=== PATIENT | female | born 1940 | race Caucasian/White ===

== ENCOUNTER 2016-09-10 10:34 | Inpatient (IN) ==
[2016-09-10] MEDS ORDERED: ASPIRIN PO STA (11:01)
[2016-09-10] MEDS ORDERED: ZOFRAN IV PRN (11:04)
--- NOTE | 2016-09-10 11:39 | Diag Imaging Result Doc PS360 ---
EXAM: FLAT/UPRIGHT ABD/1 VIEW CHEST - 09/10/2016 HISTORY: cp abd pain TECHNIQUE: Supine and upright abdomen one view chest COMPARISON: Chest two views of 11/19/2015 FINDINGS: There is a moderate amount retained fecal debris in the colon and rectum suggesting constipation. The bowel gas pattern is otherwise nonspecific. There is no abnormal gaseous small bowel distention identified. There is no free air identified. There are surgical clips at the right upper quadrant. Upright chest shows stable upper normal heart size. There is stable mild tortuosity of the thoracic aorta. There is stable biapical pleural thickening. There are no acute changes identified. There is old deformity of the distal right clavicle noted. IMPRESSION: Evidence of constipation. Nonspecific bowel gas pattern otherwise. No evidence of acute cardiopulmonary disease. Chronic deformity of the distal right clavicle noted. Electronically signed by Keven Ramirez 09/10/2016 11:37 AM
[2016-09-10 11:43] LABS: INR 1.02; PROTIME 10.7 Seconds (9.2-11.7)
[2016-09-10 12:13] LABS: AGAP 12; ALBUMIN 3.2 g/dL (3.5-5.0); ALKALINE PHOSPHATASE 144 U/L (32-104); BUN 10 mg/dL (8-22); CALCIUM 9.3 mg/dL (8.8-10.2); CHLORIDE 94 mmol/L (98-107); COSMO 260; GOT 208 U/L (10-30); GPT 101 U/L (10-36); POTASSIUM 3.7 mmol/L (3.5-5.1); SODIUM 130 mmol/L (136-145); TCO2 24 mmol/L (25-35); TOTAL PROTEIN 6.7 g/dL (6.3-8.3)
--- NOTE | 2016-09-10 12:14 | EKG Report ---
Test Performed on : 09/10/2016 10:55:00 AM Test Reason : chest pain Blood Pressure : / mmHG Vent. Rate : 073 BPM Atrial Rate : 073 BPM P-R Int : 154 ms QRS Dur : 078 ms QT Int : 382 ms P-R-T Axes : 048 038 222 degrees QTc Int : 420 ms Normal sinus rhythm. with sinus arrhythmia. ST \T\ T wave abnormality, consider inferior ischemia ST \T\ T wave abnormality, consider anterolateral ischemia Abnormal ECG When compared with ECG of 06-NOV-2009 15:00, No significant change was found Unconfirmed Result
--- NOTE | 2016-09-10 14:39 | HISTORY AND PHYSICAL ---
CHIEF COMPLAINT: Right neck pain, right shoulder pain, and pronounced abdominal pain and nausea. HISTORY OF PRESENT ILLNESS: The patient is a 76-year-old, white female, followed in my medical practice, who presents to the office complaining of shoulder pain. She says initially it began in the left shoulder area and radiated across to the right shoulder where it seemed to localize some right neck discomfort as well. 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 She says she was seen in the ER 2 days ago and was evaluated and thought to have trapezius muscle strain, and was started on Robaxin 500 mg p.o. b.i.d., and Tylenol #3. She took 1 dose Tylenol #3 after eating 2 pieces of toast this morning and began having severe pain in her epigastrium with prominent nausea and nearly "throwing up". The patient does have a history of peptic ulcer disease, but denies melena or hematochezia. She does admit to some constipation. MEDICATIONS PRIOR TO ADMISSION: 1. Cymbalta 60 mg p.o. daily. 2. Zestril 5 mg p.o. daily. 3. Toprol-XL 50 mg p.o. daily. 4. Xanax 0.25 mg p.o. t.i.d. p.r.n. anxiety. 5. Neurontin 300 mg p.o. b.i.d. 6. Ambien 10 mg p.o. at bedtime. 7. The patient has reinstituted some cholesterol medication in the form of Crestor at 5 mg at bedtime on the first of July. ALLERGIES: To penicillin and Keflex. PAST MEDICAL HISTORY: 1. Hypercholesterolemia. 2. Longstanding depression. 3. Osteoarthritis, severe, especially in her hands. 4. Fibromyalgia. 5. Hypertension. 6. Severe diverticulosis diagnosed April 2013. 7. Moderate TR. 8. Mild MR. PAST SURGICAL HISTORY: 1. Hysterectomy with USO 1968. 2. Lumbar back surgery 2004. 3. Cholecystectomy August 2007. 4. Appendectomy 1958. 5. Bilateral cataract removal. IMMUNIZATIONS: Pneumovax 23 given in 2007, Prevnar 13 given 04/15/2015. Last influenza vaccination given April 2016. Zostavax given 02/20/2013. FAMILY HISTORY: Notable for peptic ulcer disease in her father. Skin cancer in her mother and father. Father of pneumonia. MA in 3 uncles. Grandmother and mother with Alzheimer dementia. Uncle with prostate cancer. Son with severe alcoholism. SOCIAL HISTORY: The patient lives in [place]. She is longstanding. She smokes half pack of cigarettes per day and has for about 45 years. She does not drink alcohol. 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 REVIEW OF SYSTEMS: Notable for tremendous amount of stress on her as her son, whom she has cared for longstanding, has had a relapse of his alcoholism and had to be placed back [facility] [place]. She does admit to constipation. Denies dysuria. No recent cough. No fever. Prominent nausea only this morning. Abdominal pain only this morning. PHYSICAL EXAMINATION: VITAL SIGNS: Weight 133 which is down slightly. Blood pressure 122/60, pulse 102, temperature 98.4 degrees. GENERAL: In general, a thin, elderly, white female, who looks very ill. We gave her an emesis basin. She is very nauseated. SKIN: No rashes. HEENT: NC/AT. KYRIE. EOMI. Sclerae anicteric. OP no redness. Tongue in the midline. NECK: No LA, TMG, JVD, bruits. CV: RRR. Cannot rule out faint 1/6 murmur. LUNGS: CTA. BACK: No CVA tenderness. ABDOMEN: Soft, active bowel sounds. Moderate tenderness in the epigastrium. No mass or organomegaly. No rebound or guarding. BREASTS, PELVIC, RECTAL: Deferred. EXTREMITIES: No calf tenderness, cords or edema. Prominent OA changes noted with Heberden's nodes diffusely. NEUROLOGIC: Cranial nerves 2 through 12 intact. NF. Transferred over to the ER and obtain labs. LABS AND X-RAYS: So far, those have shown a PT 10.7, INR 1.02, PTT 31. Sodium 130, potassium 3.7, chloride 94, CO2 24, BUN 10, creatinine 0.7, glucose 93, calcium 9.3, total bilirubin 0.6. AST 208, ALT 101, alkaline phosphatase 144. These are markedly elevated compared what they were in April 2016 when they were normal. Total CK 85, troponin less than 0.01. Total protein 6.7, albumin 3.2. Flat and upright of the abdomen with one view of the chest shows constipation, otherwise negative. EKG shows normal sinus rhythm with sinus arrhythmia, prominent ST changes inferiorly and anterolaterally, which are unchanged from EKG in November 2009. ASSESSMENT: 1. Vague pain in her chest, upper shoulders especially on the right, right neck pain. Rule out anginal equivalent, but doubtful. 2. Elevated liver function tests with history of prior cholecystectomy. 3. Hypertension with borderline low blood pressures currently. 4. Hypercholesterolemia. 5. Osteoarthritis. 6. Depression. 7. Fibromyalgia. 8. Severe diverticulosis. 9. Moderate tricuspid regurgitation. 10. Mild mitral regurgitation. 11. Abdominal pain with history of peptic ulcer disease. PLAN: We will go ahead and admit the patient. Check abdominal ultrasound. Check liver lab workup. Check amylase, lipase, CBC, continue Zofran as needed. Hold her blood pressure medicines in the form of Toprol-XL and Zestril. We will also continue her Protonix and will hold the Crestor. Await abdominal ultrasound results. cc: Ralf Wall MD
--- NOTE | 2016-09-10 16:05 | Diag Imaging Result Doc PS360 ---
US ABDOMEN-COMPLETE - 09/10/2016 INDICATION: elevated lfts COMPARISON: 04/16/2014 FINDINGS: The gallbladder is surgically absent. The liver, pancreas, spleen, and both kidneys are normal. Common bile duct measures 1.2 cm. Aorta, IVC, and main portal vein are patent. Sonographic Crawford sign is negative. IMPRESSION: No acute disease. Benign dilation of the common bile duct, which is commonly found in patient's with hepatic cholecystectomy. Electronically signed by Lester Poe 09/10/2016 4:03 PM
[2016-09-10 16:55] LABS: MANUAL DIFF NEEDED? NO
[2016-09-10 17:02] LABS: BASO% 0.3 % (0.0-0.8); EOS# 0.01 X1000 (0.0-0.7); EOS% 0.2 % (0.0-10.0); HEMATOCRIT 34.5 % (37.0-47.0); HEMOGLOBIN 11.4 g/dL (12.0-16.0); LYMPH% 27.9 % (20.5-51.1); MCH 31.4 PG (27-31); MONO% 12.2 % (1.7-9.3); NEUT% 59.4 % (42.2-75.2); PLT 241 X1000 (130-400); RBC 3.63 XMIL (4.2-5.4)
[2016-09-10 17:14] LABS: AMYLASE 51 U/L (20-200); LIPASE 28 U/L (13-60)
[2016-09-10] MEDS: AMBIEN PO SCH ×2 (20:37→22:33)
[2016-09-10] MEDS: NEURONTIN PO SCH (20:37)
[2016-09-11] MEDS: XANAX PO PRN ×3 (03:12→20:25)
[2016-09-11 06:11] LABS: MANUAL DIFF NEEDED? NO
[2016-09-11 06:19] LABS: BASO% 0.4 % (0.0-0.8); EOS# 0.05 X1000 (0.0-0.7); HEMATOCRIT 33.2 % (37.0-47.0); HEMOGLOBIN 11.1 g/dL (12.0-16.0); IMM GRAN# 0.02 X1000 (0.0-0.04); IMM GRAN% 0.4 % (0.0-0.5); LYMPH# 1.42 X1000 (1.2-3.4); LYMPH% 27.7 % (20.5-51.1); MCH 31.9 PG (27-31); MCHC 33.4 g/dL (33-37); MCV 95.4 FL (81-99); MONO# 0.68 X1000 (0.11-0.59); MONO% 13.3 % (1.7-9.3); MPV 10.2 FL (7.4-10.4); NEUT% 57.2 % (42.2-75.2); PLT 252 X1000 (130-400); RBC 3.48 XMIL (4.2-5.4)
[2016-09-11 06:47] LABS: AGAP 11; ALBUMIN 3.2 g/dL (3.5-5.0); ALKALINE PHOSPHATASE 188 U/L (32-104); AMYLASE 47 U/L (20-200); BUN 9 mg/dL (8-22); CALCIUM 9.2 mg/dL (8.8-10.2); CHLORIDE 99 mmol/L (98-107); COSMO 272; GOT 286 U/L (10-30); GPT 234 U/L (10-36); LIPASE 20 U/L (13-60); POTASSIUM 3.9 mmol/L (3.5-5.1); SODIUM 137 mmol/L (136-145); TCO2 27 mmol/L (25-35); TOTAL BILIRUBIN 0.46 mg/dL (0.20-1.00); TOTAL PROTEIN 6.4 g/dL (6.3-8.3)
[2016-09-11] MEDS: NEURONTIN PO SCH ×2 (08:38→20:25)
[2016-09-11] MEDS: PROTONIX PO SCH (08:38)
[2016-09-11] MEDS: CYMBALTA PO SCH (08:38)
[2016-09-11] MEDS ORDERED: DULCOLAX PR ONE (08:49)
[2016-09-11] MEDS ORDERED: MILK OF MAGNESIA PO ONE (08:49)
[2016-09-11] MEDS: ULTRAM PO PRN ×2 (10:02→18:03)
[2016-09-11 10:20] LABS: ALLEN TEST YES; BE 2.3 mmoll (-3.0-3.0); BLOOD TYPE ARTERIAL; DRAW SITE R RADIAL; METHB 0.8 % (0.0-1.5); PCO2(98.6) 43 mmHg (35-45); PO2(98.6) 62 mmHg (60-100); SAMPLE BLOOD; SAO2 96.9 % (95.0-100.0); THB 10.7 g/dL (11.5-17.4); pH(98.6) 7.41 (7.35-7.45)
[2016-09-11 10:22] LABS: MODALITY ROOM AIR
--- NOTE | 2016-09-11 13:33 | PROGRESS NOTE ---
DATE: 09/11/2016 SUBJECTIVE: Patient alert. She has no specific complaints. Still has some discomfort in the neck area on the right with movement of her neck but that is improving, she thinks. OBJECTIVE: CV: RRR. Lungs: CTA. Abdomen soft. No pinpoint tenderness. No mass or organomegaly. Extremities: No calf tenderness, cords or edema. Neurologic: Nonfocal. LABORATORY DATA: Labs today reveal mild escalation in already elevated LFTs. Amylase, lipase normal. Creatinine normal. Abdominal ultrasound yesterday revealed normal liver and organs except for mildly dilated common bile duct at 1.2 which was thought to be a normal thing considering her previous history of cholecystectomy. Cardiac enzymes: Troponin level negative x3. Flat and upright of the abdomen reveals some constipation. Chest x-ray portion and, otherwise, x-rays are nonspecific. ASSESSMENT: 1. Elevated LFTs. 2. Right neck/shoulder pain with no evidence of anginal equivalent. 3. Hypercholesterolemia. 4. History of hypertension with blood pressure running low but stable off Zestril and Toprol. 5. Depression with anxiety, long-standing. 6. Severe osteoarthritis. PLAN: Ferritin level was elevated in the 500s. Hepatitis profile is pending. I am going to ask Dr. Ragland to see the patient in consultation. We have left her off of her Crestor and left her off her antihypertensives. Continue PPI in the form of Protonix. cc: Ralf Wall MD
--- NOTE | 2016-09-11 14:21 | Diag Imaging Result Doc PS360 ---
EXAM: ANGIOGRAM/PULMONARY ARTERIES HISTORY: hypoxia:elevated d-dimer TECHNIQUE: COMPARISON: None. FINDINGS: Normal opacification of the pulmonary arteries and their major branches. No thoracic aortic aneurysm or dissection. The heart is mildly enlarged. No pleural effusions. No enlarged mediastinal or hilar lymph nodes. There is apical pleural thickening and scarring. A 7 mm nodule is found laterally in the right lower lobe on image 96. No consolidation. No bronchiectasis. Minimal basilar atelectasis or fibrosis. IMPRESSION: 1.No pulmonary emboli 2.Small nonspecific right lower lobe pulmonary nodule 3.Apical pleural thickening and scarring Electronically signed by Cam Llanos 09/11/2016 2:18 PM
--- NOTE | 2016-09-11 14:23 | Diag Imaging Result Doc PS360 ---
EXAM: CT ABD/PELVIS W/ IV CONT ONLY HISTORY: elevated lfts TECHNIQUE: COMPARISON: None. FINDINGS: There is fatty infiltration of the liver. The gallbladder has been removed. Normal spleen, pancreas, adrenal glands, and kidneys. No hydronephrosis. No aortic aneurysm. Moderate atherosclerosis. There is stool throughout the colon. No bowel obstruction. There are scattered diverticula. No inflammation about the cecum. No abscess. No free air. The urinary bladder is distended and appears normal. The uterus is been removed. No pelvic mass. IMPRESSION: 1.Fatty infiltration of the liver 2.Cholecystectomy 3.Constipation 4.Diverticulosis 5.Hysterectomy Electronically signed by Cam Llanos 09/11/2016 2:21 PM
[2016-09-11] MEDS: AMBIEN PO SCH (20:25)
[2016-09-12 05:25] LABS: HEMATOCRIT 32.9 % (37.0-47.0); HEMOGLOBIN 10.9 g/dL (12.0-16.0); MCH 32.2 PG (27-31); MCHC 33.1 g/dL (33-37); MCV 97.1 FL (81-99); MPV 9.8 FL (7.4-10.4); RBC 3.39 XMIL (4.2-5.4)
[2016-09-12 05:33] LABS: AGAP 12; ALBUMIN 3.1 g/dL (3.5-5.0); ALKALINE PHOSPHATASE 166 U/L (32-104); BUN 8 mg/dL (8-22); CALCIUM 9.1 mg/dL (8.8-10.2); CHLORIDE 97 mmol/L (98-107); COSMO 274; GOT 102 U/L (10-30); GPT 150 U/L (10-36); POTASSIUM 4.1 mmol/L (3.5-5.1); SODIUM 138 mmol/L (136-145); TCO2 29 mmol/L (25-35); TOTAL BILIRUBIN 0.34 mg/dL (0.20-1.00); TOTAL PROTEIN 6.2 g/dL (6.3-8.3)
[2016-09-12 08:43] LABS: HEPATITIS PROFILE ACUTE SEE COMMENTS
[2016-09-12] MEDS: ULTRAM PO PRN ×2 (08:47→15:44)
[2016-09-12] MEDS: PROTONIX PO SCH (08:48)
[2016-09-12] MEDS: DULCOLAX PR SCH (08:48)
[2016-09-12] MEDS: MIRALAX PO SCH (08:48)
[2016-09-12] MEDS: CYMBALTA PO SCH (08:48)
[2016-09-12] MEDS: NEURONTIN PO SCH ×2 (08:48→21:47)
[2016-09-12] MEDS ORDERED: NS 500 ML IV ONE (11:37)
--- NOTE | 2016-09-12 13:23 | PROGRESS NOTE ---
DATE: 09/12/2016 SUBJECTIVE: Patient lying in bed, sleeping. She is easily arousable. She denies specific complaints. Says she feels a little bit better. OBJECTIVE: Vital signs: Afebrile, pulse 66, blood pressure this morning 90/67, respiratory rate 18, O2 saturation room air 94-97%. Blood pressure as low as 77/43 documented 8 p.m. last evening. Cardiovascular: RRR. Lungs: CTA. Active bowel sounds. No point tenderness. No bowel movement. Extremities: No calf tenderness, cords or edema. Neurologic: Cranial nerves are intact without focal deficits. LAB: Showed negative hepatitis profile. Liver function tests remain elevated, but are declining. White count 4.8, hemoglobin 10.9, platelets 263,000. Electrolytes normal. BUN 8, creatinine 0.6. CT pulmonary angiogram showed no pulmonary emboli. Small nonspecific 7 mm nodule right lower lobe, apical pleural thickening and scarring. CT abdomen and pelvis reveals fatty liver, cholecystectomy prior, constipation, diverticulosis, prior hysterectomy. ASSESSMENT: 1. Elevated liver function tests thought at this point possibly related to the Crestor, improving. 2. Hypotension, still fairly prominent despite leaving her off of her Toprol and Zestril since admission. 3. Right neck and shoulder pain improved, thought musculoskeletal in nature. 4. Hypercholesterolemia currently off of her Crestor due to elevated liver function tests. 5. History of hypertension. 6. Depression with anxiety and stress reaction associated with recent difficulty with her son. 7. Severe osteoarthritis. PLAN: At this time will give her a bolus of normal saline. Will ambulate the patient. Continue to leave her off her Crestor and antihypertensives. Discontinue PPI. See how she does with ambulation and see how her blood pressure holds up. If she does well, she will possibly be able to be discharged tomorrow morning. Will repeat labs in the morning. cc: Ralf Wall MD
[2016-09-12] MEDS: XANAX PO PRN (15:44)
[2016-09-12] MEDS: AMBIEN PO SCH (21:47)
[2016-09-13 05:56] LABS: HEMOGLOBIN 10.9 g/dL (12.0-16.0); MCH 32.2 PG (27-31); MCV 97.3 FL (81-99); MPV 9.8 FL (7.4-10.4); RBC 3.39 XMIL (4.2-5.4)
[2016-09-13 06:15] LABS: AGAP 13; ALKALINE PHOSPHATASE 146 U/L (32-104); BUN 7 mg/dL (8-22); CALCIUM 8.9 mg/dL (8.8-10.2); CHLORIDE 100 mmol/L (98-107); COSMO 277; GOT 45 U/L (10-30); GPT 100 U/L (10-36); POTASSIUM 4.4 mmol/L (3.5-5.1); SODIUM 140 mmol/L (136-145); TCO2 27 mmol/L (25-35); TOTAL BILIRUBIN 0.31 mg/dL (0.20-1.00)
[2016-09-13 08:48] VITALS: BP 101/53
[2016-09-13] MEDS: NEURONTIN PO SCH (09:48)
[2016-09-13] MEDS: DULCOLAX PR SCH (09:48)
[2016-09-13] MEDS: ULTRAM PO PRN (09:48)
[2016-09-13] MEDS: PROTONIX PO SCH (09:49)
[2016-09-13] MEDS: MIRALAX PO SCH (09:49)
[2016-09-13] MEDS: CYMBALTA PO SCH (09:49)
[2016-09-13] MEDS: XANAX PO PRN (09:49)
--- NOTE | 2016-09-13 15:25 | PROGRESS NOTE ---
DATE: 09/13/2016 SUBJECTIVE: Patient overall doing better. Still has a little neck soreness to palpation but overall feeling better. She says she is getting her appetite back. OBJECTIVE: Vital signs: Afebrile, pulse high 60s to low 70s, respirations 16-20, blood pressure in the low 100s primarily but doing good. She is eating 100% of her meals and O2 saturations on room air 92-96%. Cardiovascular: RRR. Lungs: CTA. Abdomen: Soft, nontender. Extremities: No calf tenderness, cords or edema. Neck: Musculature is tender bilaterally trapezius muscular right greater than left. FROM at the neck. Neuro: Nonfocal, cranial nerves intact. LABS: White count of 5.4, hemoglobin 10.9, hematocrit 33, platelets 283,000. CMP shows normal BUN and creatinine at 7 and 0.6, normal electrolytes. Liver function tests are coming down with AST of 45, ALT of 100, alkaline phosphatase 146. Hepatitis profile negative. ASSESSMENT: 1. Elevated liver function tests thought multifactorial but likely contributed to by Crestor. Will stop this as she is doing. 2. Hypotension resolved. Will leave off antihypertensives at discharge. 3. Right neck and shoulder pain thought musculoskeletal. Will continue Robaxin. 4. Hypercholesterolemia. Leave off Crestor. Consider other options at a later date. We will recheck her in the office in 10 days. 5. History of hypertension doing well off antihypertensives. 6. Depression with anxiety and a acute stress reaction. 7. Severe osteoarthritis. PLAN: Will discharge the patient home off the Crestor and antihypertensives. Will give her Robaxin for neck discomfort. Recheck in 10 days with repeat LFTs at that time. cc: Ralf Wall MD
[2016-09-13] MEDS ORDERED: ROBAXIN PO SCH (17:00)
--- NOTE | 2016-10-20 13:19 | DISCHARGE SUMMARY ---
ADMISSION DATE: 09/10/2016 DISCHARGE DATE: 09/13/2016 DIAGNOSES: 1. Right neck, shoulder, and vague chest pain, thought musculoskeletal. No findings of cardiac etiology. 2. Hypotension. Resolved. 3. Elevated liver function tests, thought multifactorial, but contributed to by Crestor, so that medication was stopped. 4. Hypercholesterolemia. 5. History of hypertension. 6. Depression with anxiety and acute stress reaction. 7. Severe osteoarthritis, diffuse. 8. Fatty liver. 9. Diverticulosis. 10. Constipation. 11. Fibromyalgia. 12. Mild mitral regurgitation, moderate tricuspid regurgitation. CONSULTANTS: Dr. Christoph Ragland. PROCEDURES: 1. Flat and upright of the abdomen with 1 view of chest, revealing constipation, nonspecific bowel gas pattern, no acute cardiopulmonary disease. Chronic deformity of the right distal clavicle noted. 2. Abdominal ultrasound. No acute disease. Benign dilation of the CBD, commonly found in patients with previous hepatic cholecystectomy. 3. CT pulmonary angiogram. No pulmonary emboli. Small nonspecific right lower lobe pulmonary nodule. Apical pleural thickening and scarring. 4. CT abdomen and pelvis with IV contrast only reveals fatty liver, prior cholecystectomy, constipation, diverticulosis, hysterectomy. 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 She came in with right shoulder, right neck, and vague chest discomfort which was tender to palpation, also had had some nausea and vomiting. Patient had tried some outpatient Robaxin and Tylenol No. 3, and seemed to throw up after she took the Tylenol No. 3. Patient also was noted to have constipation. Serial cardiac enzymes and troponin levels were obtained, which were negative. Patient's liver function tests were mildly elevated and Crestor was stopped in that regard. White count was normal at 5 through the hospitalization, hemoglobin around 11 and stable, and platelets normal in the mid 200,000s. D- dimer was elevated at 0.83. With the vague chest discomfort, CT pulmonary angiogram was obtained and was negative. ABG was obtained and was satisfactory. Liver function tests seemed to decline with stoppage of the Crestor. Serial cardiac enzymes and troponin levels were negative. Hepatitis profile was negative. Ferritin level was in the 500s. Patient had CT abdomen and pelvis, which showed fatty liver, diverticulosis, and constipation. She was treated and improved in that regard. She was taken off her blood pressure medicines, as her blood pressure was running low, and ambulated. Robaxin was used for the neck discomfort. By 09/13/2016, she had improved with her neck and chest markedly. She was eating well, ambulating without difficulty, blood pressure as improved off her blood pressure medicines, and liver function tests improved off the Crestor. DISCHARGE MEDICATIONS: Robaxin 500 mg p.o. t.i.d.; MiraLAX 17 g with 8 ounces of water daily; Ultram 50 mg p.o. q.6 hours p.r.n. pain; Ambien 10 mg p.o. at bedtime; Protonix 40 mg p.o. daily; Cymbalta 60 mg p.o. daily; Neurontin 600 mg p.o. t.i.d. per [facility]; Xanax 0.25 mg p.o. q.8-12 hours p.r.n. anxiety. She was left off of her Toprol XL, Zestril, and Crestor. FOLLOWUP: She will follow up in my office in 10 days and will repeat LFTs at that time. cc: Ralf Wall MD
== END 2016-09-13 15:05 | disposition home or self-care (01) ==
LOC: ED 10:34 → 4N 14:21
PROVIDERS: ADMIT Family Medicine; ATTEND Family Medicine